=== PATIENT | male | born 1945 | race Caucasian/White ===

== ENCOUNTER → 2023-04-15 06:47 | Outpatient (REF) | payer OTHER, SELFPAY | LOC: RAD 06:47 | PROVIDERS: ATTENDING PHYSICIAN Internal Medicine Gastroenterology; FAMILY PHYSICIAN Student in an Organized Health Care Education/Training Program | DX: K74.69 Other cirrhosis of liver (principal) | CPT/HCPCS: 76700 ==

== ENCOUNTER 2023-06-28 06:18 | Day surgery (SDC) | payer OTHER, SELFPAY ==
[2023-06-28 08:20] LABS: Glucose - Point of Care 106 mg/dl (70-99)
[2023-06-28 08:24] VITALS: BP 167/80
[2023-06-28 08:25] VITALS: BMI 33.8
[2023-06-28 08:29] VITALS: BMI 33.8
[2023-06-28 09:47] VITALS: BP 135/74
[2023-06-28 10:00] VITALS: BP 122/62
[2023-06-28 10:11] LABS: Glucose - Point of Care 108 mg/dl (70-99)
[2023-06-28 10:15] VITALS: BP 149/76
== END 2023-06-28 10:27 | disposition home or self-care (01) ==
LOC: SDS 06:18
PROVIDERS: ATTENDING PHYSICIAN Internal Medicine Gastroenterology
DX: K74.60 Unspecified cirrhosis of liver (principal); I85.10 Secondary esophageal varices without bleeding; K29.70 Gastritis, unspecified, without bleeding; K22.89 Other specified disease of esophagus; K44.9 Diaphragmatic hernia without obstruction or gangrene; K31.7 Polyp of stomach and duodenum
CPT/HCPCS: 43239; 88305; 82962; 88342; 93005

== ENCOUNTER → 2023-10-21 10:25 | Outpatient (REF) | payer OTHER, SELFPAY | LOC: RAD 10:25 | PROVIDERS: ATTENDING PHYSICIAN Nurse Practitioner Family; FAMILY PHYSICIAN Emergency Medicine | DX: M79.605 Pain in left leg (principal) | CPT/HCPCS: 93971 ==

== ENCOUNTER → 2023-10-23 07:15 | Outpatient (REF) | payer OTHER, SELFPAY | LOC: MRI 3T 07:15 | PROVIDERS: ATTENDING PHYSICIAN Internal Medicine Transplant Hepatology; FAMILY PHYSICIAN Emergency Medicine | DX: K74.69 Other cirrhosis of liver (principal) | CPT/HCPCS: 74183; A9581 ==

== ENCOUNTER → 2023-11-07 07:14 | Outpatient (REF) | payer OTHER, SELFPAY | LOC: HWRAD 07:14 | PROVIDERS: ATTENDING PHYSICIAN Internal Medicine Transplant Hepatology; FAMILY PHYSICIAN Emergency Medicine | DX: C22.0 Liver cell carcinoma (principal) | CPT/HCPCS: 71250 ==

== ENCOUNTER 2024-01-01 06:05 | Day surgery (SDC) | payer OTHER, SELFPAY ==
[2023-12-06 13:47] VITALS: BMI 33.0
[2023-12-06 14:46] LABS: Hematocrit 32.7 % (39.0-52.0); Hemoglobin 11.6 g/dL (13.0-18.0); Mean Corp Hgb Conc. 35.5 g/dL (33.0-37.0); Mean Corpuscular Hgb 33.1 pg (27.0-31.0); Mean Corpuscular Volume 93.4 fL (80.0-94.0); Mean Platelet Volume 11.6 fL (7.4-10.4); Platelet Count 66 10^3/uL (130-400); Red Cell Dist. Width 14.2 % (11.5-14.5); White Blood Cell Count 2.9 10^3/uL (4.8-10.8)
[2023-12-06 15:10] LABS: ALT (SGPT) 45 U/L (0-50); AST (SGOT) 50 U/L (17-59); Albumin 3.2 g/dl (3.5-5.0); Alkaline Phosphatase 147 U/L (38-126); Blood Urea Nitrogen 10 mg/dl (9-20); Calcium 8.6 mg/dl (8.4-10.2); Carbon Dioxide 22 mmol/L (22-30); Chloride 110 mmol/L (98-107); Estimated Creatinine Clearance > 125 ml/min; Glucose 110 mg/dl (70-99); Sodium 142 mmol/L (135-145); Total Bilirubin 1.6 mg/dl (0.2-1.3); Total Protein 5.9 g/dl (6.3-8.2); eGFR > 60.00
[2023-12-07 13:41] LABS: Glycohemoglobin (HgbA1c) 5.3 % (4.0-5.6)
--- NOTE | 2023-12-23 11:36 | VNURNOTE ---
Patient is scheduled for an elective L TKA on 01/01/24- he is a same day patient with Dr Blue. Spoke with patient's spouse Jennifer prior to surgery. Introduced role of [facility] Liaison. She reports that pt lives with spouse in a MULTI story home. There
are 2 steps to enter and a flight of steps to the second floor. 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 patient currently functions independently. He has a cane and rolling walker.
PCP is Dr Dotty Jaramillo.
Discussed [facility] joint protocol and post surgical plans.
Reviewed that he will have VN services initially and will then start outpatient PT.
Selects VN for his home care needs and will go to [facility] for outpatient PT. Scheduled for 01/05
Patient's spouse advised to bring RW day of surgery. All questions answered. Referral placed in [facility].
Plan: [facility] per [facility] joint protocol then outpt PT on 01/05
--- NOTE | 2023-12-25 09:37 | SUR.OPER ---
Patients 12/05 WBC- 2.9; platelets 66. Lisy @ Dr. Victoria office notified
[2023-12-26 09:47] VITALS: BMI 33.0
--- NOTE | 2023-12-26 14:42 | PTCARENOTE ---
Dr Gardner made aware of PLT 66. He ordered a repeat CBC morning of surgery.
[2023-12-30 12:15] VITALS: BMI 33.0
[2024-01-01] VITALS (13 sets, daily range): BP systolic 109–161; BP diastolic 54–78; BMI 33.0
[2024-01-01 06:09] LABS: Glucose - Point of Care 104 mg/dl (70-99)
[2024-01-01 06:30] LABS: Hematocrit 32.8 % (39.0-52.0); Mean Corp Hgb Conc. 36.6 g/dL (33.0-37.0); Mean Corpuscular Hgb 32.9 pg (27.0-31.0); Mean Corpuscular Volume 89.9 fL (80.0-94.0); Mean Platelet Volume 10.1 fL (7.4-10.4); Platelet Count 76 10^3/uL (130-400); Red Blood Cell Count 3.65 10^6/uL (4.70-6.10); Red Cell Dist. Width 13.8 % (11.5-14.5); White Blood Cell Count 3.2 10^3/uL (4.8-10.8)
[2024-01-01] MEDS: CELEBREX 200 MG PO (06:38)
[2024-01-01] MEDS: TYLENOL 650 MG PO (06:39)
[2024-01-01 08:42] LABS: Glucose - Point of Care 110 mg/dl (70-99)
--- NOTE | 2024-01-01 10:59 | PTCARENOTE ---
Patient bleeding a lot under dressing and entire dressing full. Shyanne Andre notified and also Dr. Blue. Dr. Blue here to change patients entire dressing. No much swelling noted around knee. Patient does have baljinder and baljinder were added
by Dr. Blue to the knee. Additional dose of Transemic Acid added also. Will wait on PT for now until patient not bleeding.
[2024-01-01] MEDS: ANCEF 5 IV (11:02)
--- NOTE | 2024-01-01 11:11 | PTCARENOTE ---
Positive pulse in L dorsalis pedis. Will monitor patient.
[2024-01-01] MEDS: TRANEXAMIC ACID 100 IV (11:15)
--- NOTE | 2024-01-01 11:24 | PTCARENOTE ---
Called pharmacy twice for Transemic Acid dose. Started infusion at 1115. Will monitor patient.
--- NOTE | 2024-01-01 11:39 | PTCARENOTE ---
Patient voided 350 ml of clear yellow urine.
--- NOTE | 2024-01-01 11:58 | PTCARENOTE ---
Patient OOB and voided. Patient also OOB and dressed and stood. Patient does not have any bleeding noted at the present time. Dressing dry and intact. Dressing is a pressure dressing applied by Dr. Blue with ABD's and issac wrap. Positive pulse to
the L foot. +2 nonpitting edema to the inner aspect of the ankle. Will monitor patient.
== END 2024-01-01 12:34 | disposition home health service (06) ==
LOC: SDS 06:05
PROVIDERS: Anesthesiology; ATTENDING PHYSICIAN Orthopaedic Surgery; FAMILY PHYSICIAN Nurse Practitioner Family; OTHER PHYSICIAN Internal Medicine Interventional Cardiology
PROC: 0SRD0J9 Replacement of Left Knee Joint with Synthetic Substitute, Cemented, Open Approach (ICD-10-PCS; 2024-01-01)
DX: M17.12 Unilateral primary osteoarthritis, left knee (principal)
CPT/HCPCS: 27447; 36415; 73560; 80053; 82962; 83036; 85027; 86850; 86900; 86901; 87070; 93005; 97162; C1713; C1776

== ENCOUNTER 2024-01-31 08:53 | Outpatient (RCR) | payer OTHER, SELFPAY | END 2024-01-31 23:59 | disposition home or self-care (01) | LOC: RPT 08:53 | PROVIDERS: ATTENDING PHYSICIAN Orthopaedic Surgery | DX: Z47.1 Aftercare following joint replacement surgery (principal); Z96.652 Presence of left artificial knee joint; Z73.6 Limitation of activities due to disability | CPT/HCPCS: 97010; 97110; 97116; 97162; 97530 ==

== ENCOUNTER 2024-02-03 08:52 | Outpatient (RCR) | payer OTHER, SELFPAY | END 2024-02-03 09:53 | disposition home or self-care (01) | LOC: RPT 08:52 | PROVIDERS: ATTENDING PHYSICIAN Orthopaedic Surgery | DX: Z47.1 Aftercare following joint replacement surgery (principal); M25.562 Pain in left knee; Z73.6 Limitation of activities due to disability; Z96.652 Presence of left artificial knee joint | CPT/HCPCS: 97110 ==

== ENCOUNTER → 2024-02-28 07:30 | Outpatient (REF) | payer OTHER, SELFPAY | LOC: HWRAD 07:30 | PROVIDERS: ATTENDING PHYSICIAN Internal Medicine Transplant Hepatology; FAMILY PHYSICIAN Emergency Medicine | DX: R91.1 Solitary pulmonary nodule (principal) | CPT/HCPCS: 71250 ==

== ENCOUNTER → 2024-03-10 19:18 | Outpatient (REF) | payer OTHER, SELFPAY | LOC: MRI 3T 19:18 | PROVIDERS: ATTENDING PHYSICIAN Physician Assistant; FAMILY PHYSICIAN Emergency Medicine | DX: C22.0 Liver cell carcinoma (principal) | CPT/HCPCS: 74183; A9581 ==

== ENCOUNTER → 2024-06-10 07:50 | Outpatient (REF) | payer OTHER, SELFPAY | LOC: PET 07:50 | PROVIDERS: ATTENDING PHYSICIAN Internal Medicine Critical Care Medicine | DX: C22.0 Liver cell carcinoma (principal); R91.8 Other nonspecific abnormal finding of lung field | CPT/HCPCS: 78815; A9552 ==

== ENCOUNTER → 2024-06-18 09:44 | Outpatient (REF) | payer OTHER, SELFPAY ==
[2024-06-18 10:17] VITALS: BP 140/76; BP_SYST 82
[2024-06-18 10:27] VITALS: BP 94/59; BP_SYST 80
== END ==
LOC: RADI 09:44
PROVIDERS: ATTENDING PHYSICIAN Internal Medicine Critical Care Medicine
DX: J90 Pleural effusion, not elsewhere classified (principal)
CPT/HCPCS: 32555; 71045

== ENCOUNTER → 2024-06-22 09:50 | Outpatient (REF) | payer OTHER, SELFPAY | LOC: PAVMRI 09:50 | PROVIDERS: ATTENDING PHYSICIAN Physician Assistant; FAMILY PHYSICIAN Emergency Medicine | DX: C22.0 Liver cell carcinoma (principal) | CPT/HCPCS: 74183; A9581 ==

== ENCOUNTER 2024-07-06 13:55 | Inpatient (IN) | payer OTHER, SELFPAY ==
[2024-07-06] VITALS (14 sets, daily range): BP systolic 79–160; BP diastolic 69–104; BMI 31.8; BMI 30.9
[2024-07-06 09:52] LABS: % Basophils 0.6 % (0-2); % Eosinophils 2.9 % (0-6); % Immature Granulocytes 0.2 % (0-0.5); % Lymphocytes 9.4 % (20.5-51.1); % Monocytes 10.9 % (1.7-9.3); Absolute Eosinophils 0.1 10^3/uL (0-0.7); Absolute Lymphocytes 0.5 10^3/uL (1.2-3.4); Absolute Monocytes 0.5 10^3/uL (0.1-0.6); Absolute Neutrophils 3.7 10^3/uL (1.4-6.5); Hematocrit 36.7 % (39.0-52.0); Hemoglobin 12.9 g/dL (13.0-18.0); Mean Corp Hgb Conc. 35.1 g/dL (33.0-37.0); Mean Corpuscular Hgb 34.2 pg (27.0-31.0); Mean Corpuscular Volume 97.3 fL (80.0-94.0); Mean Platelet Volume 10.8 fL (7.4-10.4); Nucleated Red Blood Cells % 0 % (-); Platelet Count 111 10^3/uL (130-400); Red Blood Cell Count 3.77 10^6/uL (4.70-6.10); Red Cell Dist. Width 14.6 % (11.5-14.5); White Blood Cell Count 4.9 10^3/uL (4.8-10.8)
[2024-07-06 10:06] LABS: ALT (SGPT) 47 U/L (0-50); AST (SGOT) 52 U/L (17-59); Albumin 2.5 g/dl (3.5-5.0); Alkaline Phosphatase 205 U/L (38-126); Blood Urea Nitrogen 11 mg/dl (9-20); Calcium 8.6 mg/dl (8.4-10.2); Carbon Dioxide 26 mmol/L (22-30); Chloride 109 mmol/L (98-107); Glucose 146 mg/dl (70-99); Potassium 4.1 mmol/L (3.5-5.1); Sodium 141 mmol/L (135-145); Total Bilirubin 2.9 mg/dl (0.2-1.3); Total Protein 5.3 g/dl (6.3-8.2); eGFR > 60.00
[2024-07-06 10:16] LABS: Troponin I < 0.012 ng/ml
--- NOTE | 2024-07-06 11:03 | ED.GENMED ---
History of Present Illness
General
Chief Complaint: Chest Pain
Source: patient
Exam Limitations: none
Time Seen by Provider: 07/06/24 11:00
History of Present Illness
History of Present Illness:
79yoM with a history of hepatocellular carcinoma s/p transarterial radiation treatment, cirrhosis, hypertension, hyperlipidemia, and type 2 diabetes presenting for evaluation of shortness of breath. Patient has a history of a pleural effusion and
had a thoracentesis performed on 06/18/24. He has been feeling short of breath over the past primarily with exertion. He is also having a cough at nighttime. He reports intermittent twinges in his chest. He has no chest pain currently. He was
seen by his PCP today and breath sounds were decreased on the right so he was sent to the ED for evaluation. He denies any fevers or leg swelling.
Past History
Past History
ED Past Medical History: GERD, HTN, Hypercholesterolemia and Hypothyroidism
ED Past Surgical History: None
Social History
Tobacco: Non-smoker
Alcohol: None
Drug: None
Phy Exam
General Physical Exam
General Presentation: well appearing and no apparent distress
General age: appears stated age
General Skin: warm and dry
General Habitus: normal
General Mental: alert
ENT Exam
ENT Exam: normocephalic
Cardiovascular Exam
Cardiovascular Exam: no edema and irregularly irregular
Pulmonary Exam
Pulmonary Exam: no respiratory distress and other (Decreased breath sounds on R lung base. Speaking in full sentences without difficulty)
Neurological Exam
Neurological Exam: alert
[place] Coma Scale
Eye Opening: Spontaneous
Verbal Response: Oriented
Motor Response: Obeys Commands
GCS Total Score: 15
Skin Exam
Skin Exam: normal color and warm/dry
Psychiatric Exam
Psychiatric Exam: normal mood/affect
Scores
Heart Score for Chest Pain Patients
STEMI patient?: Not applicable
Course
Orders/Labs/Results
Orders:
Orders
07/06/24 Breakfast
2000 calorie (17 carb) Diabetic
At Your Request: Full Participation
Does patient need a safe tray?: No
07/06/24 09:21
Electrocardiogram (*1) Urgent
Reason for Study: Chest Pain
07/06/24 09:22
EKG- Treatment ONCE
07/06/24 09:33
CXR2 [CR Chest - 2 Views ] Urgent
Comment:
Reason For Exam: sob
07/06/24 09:41
Complete Blood Count/With Diff Urgent
Comprehensive Metabolic Panel Urgent
Magnesium Urgent
Comment: TSH & MAG ADDED ON BY FLOOR 11:30AM 07-06-24
NT-proBNP Urgent
Comment: BNP ADDED ON BY FLOOR 12:30PM 07-06-24
TSH Urgent
Troponin I Urgent
07/06/24 11:23
Cardiac Monitoring- Treatment ONCE
07/06/24 11:24
Add On- LAB Urgent
Tests Added?: TSH, magnesium
07/06/24 11:27
PULMONARY CONSULT Routine
Consulting Provider: Cody Roche
Was physician already notified: Yes
07/06/24 11:39
IRAD Cytology Routine
Date Specimen was Collected: 07/06/24
Time Specimen was Collected: 14:00
Source: Pleural Fluid, Right
Clinical Impression: pleural effusion
07/06/24 11:41
IRAD CONSULT Routine
Consulting Provider: Santiago Nicole
Was physician already notified: Yes
Procedure being ordered, including laterality if applicable: R thoracentesis
Acknowledgement that appropriate orders are entered: Yes
07/06/24 12:22
Admit/Transfer Patient As Directed
Co-Sign Provider:
Level of Care: Inpatient admission
Assign to:: Telemetry
Physician / Group: aislinn rebolledo
Diagnosis: pleural effusion
Reason for Telemetry: Arrhythmia
Date to Stop Telemetry: 07/09/24
Time to Stop Telemetry: 11:00
Reason for Hospitalization: pleural effusion
Expected length of stay greater than two midnights?: Yes
ELOS- Estimated Length of Stay in days: 3
I certify the patient meets the requirements for IP care: Yes
PRN Pain Medication Management As Directed
May give lesser potent ordered pain med per pt: Yes
preference::
Protocol:: Medication orders for pain may be administered in a
manner that supports deferring to patient preference
when the pt is:
- Requesting an ordered lesser potent pain medication.
Least to most potent pain medications are defined
as: acetaminophen < NSAID < tramadol < opioids
(morphine, oxycodone, hydromorphone).
- Requesting a lesser dose of the same medication IF
ORDERED.
- Requesting a less intrusive route of administration
if both routes are prescribed by the provider (PO <
IV).
07/06/24 12:24
Add On- LAB Urgent
Tests Added?: bnp
Code Status As Directed
Resuscitation Status: Full Code
07/06/24 12:39
Acetaminophen [Tylenol] 650 mg PO Q4HPRN PRN
Bisacodyl [Dulcolax] 10 mg RECTAL [id number] PRN
Dextrose 50%-Water [Dextrose 50% Syringe] 12.5 grams IV [id number] PRN
Docusate W/Senna [Senokot-S] 1 tablet PO BIDPRN PRN
Glucagon [GlucaGen] 1 mg IM PRN PRN
Polyethylene Glycol Powder [Miralax] 17 grams PO DAILYPRN PRN
07/06/24 12:39
CARDIOLOGY CONSULT Routine
Consulting Provider: Mohamud King
Was physician already notified: Yes
Activity As Directed
Activity Level: As Tolerated
Bedside Glucose Monitoring As Directed
Frequency: AC&HS
Additional Instructions:: Change to q6h if pt on TPN, tube feeding or not eating
Vital Signs As Directed
Frequency: Per unit guidelines
DX Deep Vein Thrombosis Video Routine
07/06/24 12:45
Electrocardiogram (*1) Urgent
Reason for Study: Shortness of Breath
07/06/24 12:58
Hematocrit Routine
PTT Urgent
Prothrombin Time Urgent
07/06/24 12:59
Echo 2D MMode Color/Doppler Routine
Reason for Study: sob
07/06/24 14:05
Acid Fast Culture & Smear Routine
TAYLER Source: Pleural Fluid
Specimen Description:
Date Specimen was Collected: 07/06/24
Time Specimen was Collected: 13:58
Comment: post procedure
Body Fluid Cell Count Routine
What is the Body Fluid: pleural fluid
Date Specimen was Collected: 07/06/24
Time Specimen was Collected: 13:59
Fluid Culture with Gram Stain Routine
TAYLER Source: Pleural Fluid
Specimen Description:
Date Specimen was Collected: 07/06/24
Time Specimen was Collected: 13:59
Comment: right
Fungus Culture Routine
TAYLER Source: Pleural Fluid
Specimen Description:
Date Specimen was Collected: 07/06/24
Time Specimen was Collected: 13:58
Fungus Smear Routine
TAYLER Source: Pleural Fluid
Specimen Description:
Date Specimen was Collected: 07/06/24
Time Specimen was Collected: 13:58
07/06/24 14:06
Body Fluid Amylase Routine
Fluid Source: Pleural
Date Specimen was Collected: 07/06/24
Time Specimen was Collected: 13:59
Comment: right
Body Fluid LDH Routine
Fluid Source: Pleural
Date Specimen was Collected: 07/06/24
Time Specimen was Collected: 13:59
Body Fluid Protein Routine
Fluid Source: Pleural
Date Specimen was Collected: 07/06/24
Time Specimen was Collected: 13:59
Body Fluid Triglycerides Routine
Fluid Source: Pleural
Date Specimen was Collected: 07/06/24
Time Specimen was Collected: 13:59
07/06/24 14:27
Glucose Urgent
LDH Urgent
Total Protein Urgent
Troponin I Urgent
07/06/24 16:30
Insulin Aspart Corrective Low [Novolog Flexpen-Low Resistance] See Protocol SC AC
07/06/24 18:00
Aspirin Chewable [Low Strength Aspirin] 81 mg PO QPM
Enoxaparin Sodium [Lovenox] 40 mg SC QPM
Pantoprazole [Protonix] 40 mg PO QPM
psyllium 1 packet PO QPM
07/06/24 19:00
Troponin I Q6H
07/06/24 20:00
Carvedilol [Coreg] 3.125 mg PO BID
07/06/24 22:00
Ferrous Sulfate [Feosol] 325 mg PO HS
07/07/24 01:00
Troponin I Q6H
07/07/24 06:00
Basic Metabolic Panel IN AM
Cardiovascular Evaluation IN AM
Complete Blood Count/No Diff IN AM
Glycohemoglobin (HgbA1c) IN AM
TSH Reflex To Free T4 IN AM
07/07/24 07:00
Troponin I Q6H
07/07/24 08:00
Atorvastatin [Lipitor] 20 mg PO DAILY
Multivitamin [Theragran] 1 tablet PO DAILY
Valsartan [Diovan] 80 mg PO DAILY
ascewrhgfol-zrhgektfq-lmy C-Mn 1 cap PO DAILY
07/08/24 06:00
Basic Metabolic Panel IN AM
Complete Blood Count/No Diff IN AM
07/09/24 06:00
Basic Metabolic Panel IN AM
Complete Blood Count/No Diff IN AM
07/09/24 11:00
DC Protocol for Telemetry ONCE
Abnormal Lab Results
07/06/24 07/06/24
09:41 12:58
RBC 3.77 L 10^6/uL
(4.70-6.10)
Hgb 12.9 L g/dL
(13.0-18.0)
Hct 36.7 L % 35.5 L %
(39.0-52.0) (39.0-52.0)
MCV 97.3 H fL
(80.0-94.0)
MCH 34.2 H pg
(27.0-31.0)
RDW 14.6 H %
(11.5-14.5)
Plt Count 111 L 10^3/uL
(130-400)
MPV 10.8 H fL
(7.4-10.4)
Absolute Lymphs (auto) 0.5 L 10^3/uL
(1.2-3.4)
Neutrophils % 76.0 H %
(42.2-75.2)
Lymphocytes % 9.4 L %
(20.5-51.1)
Monocytes % 10.9 H %
(1.7-9.3)
PT 16.5 H Sec
(11.4-14.6)
Chloride 109 H mmol/L
(98-107)
Creatinine 0.6 L mg/dL
(0.7-1.3)
Glucose 146 H mg/dl
(70-99)
Total Bilirubin 2.9 H mg/dl
(0.2-1.3)
Alkaline Phosphatase 205 H U/L
(38-126)
Total Protein 5.3 L g/dl
(6.3-8.2)
Albumin 2.5 L g/dl
(3.5-5.0)
07/06/24 12:58
07/06/24 12:58
Vital Signs
Initial and Last Documented VS:
Initial Vital Signs
Temp Pulse BP Pulse Ox
97.9 F 78 140/69 98
07/06/24 09:27 07/06/24 09:27 07/06/24 09:27 07/06/24 09:27
Last Documented Vital Signs
Temp Pulse Resp BP Pulse Ox
97.4 F 92 17 156/79 97
07/06/24 15:20 07/06/24 15:20 07/06/24 15:20 07/06/24 15:20 07/06/24 17:08
MDM/Problems Addressed
Differential Diagnosis Includes:
79yoM here with exertional dyspnea x 1 week. Hx of hepatocellular carcinoma. S/p thoracentesis about 2 weeks ago. Sent in by PCP for concern for recurrent effusion. VSS. He is well appearing in no respiratory distress. Breath sounds decreased at R
lung base. Differential diagnosis includes but is not limited to: Pleural effusion, pneumonia, CHF, less likely PE as he is not tachycardic or hypoxic
Workup obtained in triage. Chest x-ray shows a moderate size right pleural effusion. There is a patchy opacity in the right mid to lower lung which may be atelectasis and/or pneumonia. He denies any infectious symptoms
and white count normal. EKG shows rate controlled atrial fibrillation which would be a new diagnosis for him. Unclear if anticoagulation would be safe as he has a history of thrombocytopenia and esophageal varices. IR consulted for thoracentesis
as well as pulmonology. Patient admitted for further management.
*EKG
Interpreted by ED Provider?: Yes
EKG Intrepretation Date: 07/06/24
Heart Rate: 83
Rate: normal
Rhythm: a-fib
[place]: left axis deviation
QRS Pattern: right bundle branch block
Ischemia: no ischemia
*Critical Care Note
Total Time (30-74mins, 75-104mins- exclusive of procedures): Not Applicable
ED Attending Note
-
Portions of this chart may have been created with voice recognition software.� Occasional wrong word or��sound alike� substitutions may have occurred due to the inherent limitations of voice recognition software.
Discharge Plan
Departure
Patient Disposition: Admit
Date of Disposition: 07/06/24
Time of Disposition: 11:44
Presentation/result/management discussed w/ accepting MD/DO: Hospitalist
Discharge Problem:
Recurrent right pleural effusion, New onset atrial fibrillation
Interventions
Interventions:
*Risk Screen - Suicide Last Done: 07/06/24 15:28
*General Assessment Last Done: 07/06/24 11:21
*Neglect/Abuse Screening Last Done: 07/06/24 11:21
*ED- Fall Risk Assessment Last Done: 07/06/24 11:21
*ED COVID-19 Vaccine History Last Done: 07/06/24 15:28
*Nursing Disposition Last Done: 07/06/24 14:33
ED- Cardiac Assessment Last Done: 07/06/24 11:21
Discharge Date and Time
Discharge Date/Time: 07/06/24 14:33
--- NOTE | 2024-07-06 12:03 | HPS.HSE ---
Addendum entered and electronically signed by Camilo Pemberton MD 07/06/24 14:37:
I saw and examined the patient.
The DEMAND GENERATOR MANAGER or PA's note was reviewed and I agree with the note.
Comment: 79-year-old male with past medical history hepatocellular carcinoma status post transarterial radiation treatment, hypertension, cirrhosis, hyperlipidemia, type 2 diabetes mellitus came to the hospital with shortness of breath from few
days. Patient also noted mainly shortness of breath is with exertion. Also noticed some chest pressure with exertion. Denies any fever/chills. He does report to have history of pleural effusion and had thoracentesis last month. Chest x-ray with
moderate pleural effusion. Consult IR for thoracentesis. Follow Thora labs. Consult pulmonary and cardiology. New onset A-fib in the ED. Check TSH. Trend troponin. Check echo
General: Well Developed, Well Nourished and No Apparent Distress
HEENT: NormoCephalic, Moist mucous membranes and Atraumatic
Respiratory: Decreased Breath Sounds
Cardiac: S1/S2 and Regular Rhythm; No Murmur or Rub
GI: Soft, Non Tender, Non Distended and Normal Bowel Sounds
Musculoskeletal: No Edema
Neuro: AO x 3 and Nonfocal/grossly intact
Psych: Calm
I spent a total of 77 minutes with the patient or on the floor. More than 50% of this time involved counseling and coordination of care.
Original Note:
Family Physician
-
Family Physician: Cindi Marquez MD
Chief Complaint
-
sob
History of Present Illness
79yoM with a history of hepatocellular carcinoma s/p transarterial radiation treatment, cirrhosis, hypertension, hyperlipidemia, and type 2 diabetes presenting for evaluation of shortness of breath for past four days. patient stated sob only with
exertion. stated some chest pressure with exertion. denied cough, congestion, fever, chill, B[place], dizzy or syncope.denied abdominal pain,n,v,d. denied dysuria or hematuria. denied weight gain or LE edema. Patient has a history of a pleural effusion
and had a thoracentesis performed on 06/18/24.
Chest x-ray with moderate pleural effusion. ER consulted interventional radiology for thoracentesis. Admitting for further management
Medical History
Past Medical History
Past Medical History: Reports Other
Additional Past Medical History:
Iron deficiency anemia, thrombocytopenia, hypertension, type 2 diabetes, cirrhosis of liver without ascites, hypothyroidism, insomnia, pulmonary hypertension, aortic valve sclerosis, nonalcoholic fatty liver disease, CKD, lung nodules, peptic ulcer
disease, hepatocellular carcinoma
Past Surgical History: Reports Other
Additional Past Surgical History:
Right eye cataract surgery, basal cell carcinoma removal, right total hip replacement, excision of scalp cyst, left total knee replacement, liver tumor removed, thoracentesis,
Social History
Tobacco: Former Smoker
Alcohol: None
Drug: None
Family History
Family History: Not pertinent
Allergies / Home Medications
Allergies reflects when Allergies were last updated in [employer].
Home Medications with original date entered in [employer]
Allergy/Medication List:
Allergies
Allergy/AdvReac Type Severity Reaction Status Date / Time
No Known Allergies Allergy Verified 01/01/24 06:16
Home Medications
metformin 500 mg tablet 500 mg PO BID Diabetes 05/22/21
atorvastatin 20 mg tablet 20 mg PO DAILY High cholesterol 05/26/21
carvedilol 3.125 mg tablet 3.125 mg PO BID Blood pressure 05/26/21
multivitamin with folic acid 400 mcg tablet (Tab-A-Emerita) 1 tab PO DAILY Supplement 05/26/21
ferrous sulfate 325 mg (65 mg iron) tablet (FeroSul) 325 mg PO HS Supplement 12/26/23
pantoprazole 40 mg tablet,delayed release 40 mg PO QPM Gastrointestinal issue 12/26/23
fjqkxizoykz-kaejbojlg-djs C-Mn 500 mg-400 mg capsule 1 cap PO DAILY 06/18/24
aspirin 81 mg chewable tablet 81 mg PO QPM Blood clot prevention/tx 07/06/24
psyllium 1 packet PO QPM 07/06/24
valsartan 80 mg tablet 80 mg PO DAILY Blood pressure 07/06/24
vitamins A and D3 in cod liver oil 1,250 unit-135 unit capsule (cod liver oil) 1 cap PO DAILY 07/06/24
Review of Systems
-
Constitutional: Reports No Symptoms
EENT: Reports No Symptoms
Respiratory: Reports Trouble Breathing
Cardiac: Reports No Symptoms
Abdomen/GI: Reports No Symptoms
: Reports No Symptoms
Musculoskeletal: Reports No Symptoms
Skin: Reports No Symptoms
Neurological: Reports No Symptoms
Endocrine: Reports No Symptoms
Hematologic/Lymphatic: Reports No Symptoms
Psych: Reports No Symptoms
Physical Exam
Vital Signs
Vital Signs
Temp Pulse BP Pulse Ox
97.9 F 78 140/76 98
07/06/24 09:27 07/06/24 09:27 07/06/24 11:07 07/06/24 11:09
Physical Exam
General: Well Developed, Well Nourished and No Apparent Distress
HEENT: NormoCephalic, Moist mucous membranes and Atraumatic
Respiratory: Decreased Breath Sounds
Cardiac: S1/S2 and Regular Rhythm; No Murmur or Rub
GI: Soft, Non Tender, Non Distended and Normal Bowel Sounds; No Organomegaly
Rectal: Deferred by Provider
Musculoskeletal: No Clubbing, No Cyanosis and No Edema
Skin: No Rash
Neuro: AO x 3 and Nonfocal/grossly intact
Psych: Calm
Laboratory Results
-
07/06/24 09:41
07/06/24 09:41
Laboratory Results
Total Bilirubin 2.9 mg/dl (0.2-1.3) H 07/06/24 09:41
AST 52 U/L (17-59) 07/06/24 09:41
ALT 47 U/L (0-50) 07/06/24 09:41
Alkaline Phosphatase 205 U/L (38-126) H 07/06/24 09:41
Troponin I < 0.012 ng/ml 07/06/24 09:41
Data Reviewed
-
Diagnostic Radiology: Report Reviewed by me
Lab Data: Labs Reviewed by me
Impression/Plan
-
# Shortness of breath secondary to right pleural effusion
- Chest x-ray with right pleural effusion. Patchy parenchymal opacity within the right mid to lower lung with main differential consideration of atelectasis and/or pneumonia
- History of thoracentesis on 06/18 yielding 650cc
- Pulmonary/IR consulted for thoracentesis
- Patient oxygenating very well on room air
# New onset A-fib with controlled heart rate
- EKG with A-fib
- Cardiology consulted
# History of hepatocellular carcinoma diagnosed in December 2023
# Cirrhosis
- Patient is following up with Dr. Catalan at [place]
- His last radiation was in May
#hxt of hematochezia sec to duodenal/angiectasia/gastric ulcer/variceal bleeding
# Essential hypertension/hyperlipidemia
- Aspirin, statin, Coreg continue with hold parameters
# Anemia of chronic disease
- Hemoglobin stable at 12.9
- No active bleeding
- Continue to monitor
- Ferrous sulfate continue
#Diabetes type II
-Hold Metformin
- Sliding scale,
- Carb controlled diet
# GERD
- PPI continued
Full code
ED prophylaxis SCDs
[2024-07-06 12:05] LABS: Magnesium 1.6 mg/dl (1.6-2.3)
--- NOTE | 2024-07-06 12:25 | CM ---
CM met with pt bedside
He is [place] and without his hearing aides
Pt resides with his spouse in a 2SH with 1STE, 13 steps to 2nd floor
Pt is indep with his ADLs no ADs, drives+
Has a WW for use if needed from prior knee replacement
Pt has completed radiation in 04/2024
PCP- Cindi Marquez
Rx- [facility]
Discharge Disposition- anticipate home no needs
[2024-07-06 12:35] LABS: TSH 2.89 uIU/ml (0.47-4.68)
[2024-07-06 13:14] LABS: NT-proBNP 410 pg/ml
[2024-07-06 13:24] LABS: Hematocrit 35.5 % (39.0-52.0)
[2024-07-06 13:39] LABS: PT 16.5 Sec (11.4-14.6)
[2024-07-06 13:40] LABS: APTT 31.7 Sec (23.4-35.0)
[2024-07-06 14:51] LABS: Glucose 105 mg/dl (70-99); LDH 349 U/L (120-246); Total Protein 5.4 g/dl (6.3-8.2)
[2024-07-06 15:01] LABS: Body Fluid pH 7.48
[2024-07-06 15:04] LABS: Troponin I < 0.012 ng/ml
[2024-07-06 15:13] LABS: Body Fluid Polymorphonuclear 26.7 %; Body Fluid WBC 161 /CUMM
[2024-07-06 15:14] LABS: Body Fluid Mononuclear 73.3 %
[2024-07-06 15:20] LABS: Body Fluid Amylase 49 U/L; Body Fluid Glucose 118 mg/dl; Body Fluid LDH 85 U/L; Body Fluid Protein < 2.0 g/dl; Body Fluid Triglycerides < 30 mg/dl
[2024-07-06 15:33] LABS: Body Fluid Second Tech DW
[2024-07-06 16:00] LABS: Glucose - Point of Care 113 mg/dl (70-99)
--- NOTE | 2024-07-06 16:10 | CON.CAR ---
Addendum entered and electronically signed by Jack Abad MD 07/06/24 18:05:
Attending addendum: Patient seen and examined. PA note reviewed and findings independently confirmed by me. Briefly, this is a 79-year-old gentleman with a past medical history notable for cirrhosis. He was diagnosed with hepatocellular carcinoma
in September 2023 and received transarterial radiation therapy at [facility]. He states that his most recent MRI looked 'clean'. Additional history includes 'diabetes' but his HgbA1c has measured 5.5%. He is also treated for CKD2,
hypertension, h/o variceal bleeding, and right sided pleural effusion s/p thoracentesis on 06/18/24. He now presents with a 4 day history of increase shortness of breath especially when walking up an incline. He presented for further evaluation and
was noted to have a larger effusion but was also noted to be in atrial fibrillation
GEN: AAO x 3. No acute distress
HEENT: NC/AT, sclera are anicteric
LUNGS: Clear No wheezing (post thoracentesis)
CV: Irreg Irreg rate adn rhythm. Normal S1/S2.
EXT: No CCE
NEURO: No focal neurologic deficits
RECOMMENDATION:
- Atrial fibrillation: rate controlled
Echocardiogram has been ordered
Continue oral beta jerry
Begin oral anticoagulation with Eliquis 5mg po bid : Will look into cost associated with Eliquis
He will need THELMA and cardioversion. Not sure this needs to be done while he is an inpatient
[id number] score is 3-4 depending on diagnosis of diabetes. He would need OAC either way
- Pleural effusion
Await cytology and studies
Original Note:
Consultation
Consultation Request
Date/Time Consultation Requested: 07/06/24
Date/Time Consultation Performed: 07/06/24
Requesting Provider: Dr. Pemberton
Performing Provider: Dr. Abad
Reason for Consultation: Newly diagnosed Afib of unclear duration
Medical History
-
History of Present Illness:
Patient came to the ER yesterday with increased SOB and was admitted with right-sided pleural effusion and newly diagnosed Afib of unclear duration. Patient says that he noticed increased HORTON especially with inclines and also increased cough at
night when laying down for bed. Patient finally came to the ER after he saw his PCP yesterday and they thought he might have recurrent pleural effusion. In the ER patient was noted to have reaccumulation of right-sided pleural effusion following
right-sided thoracentesis 06/18/24, but also he was in new Afib. Patient denies palpitations. No chest pain. He has not noticed LE edema or bloating.
PMH:
Right-sided pleural effusion
s/p thoracentesis for 650 mL yellow pleural fluid 06/18/24
HTN
CKD 2
DM 2
Nonalcoholic hepatic cirrhosis
h/o hepatocellular carcinoma treated with radioactive isotope at [facility] 12/2023
h/o variceal bleeding
Past Medical History
Past Medical History: Other (in HPI)
Past Surgical History: Orthopedic
Social History
Tobacco: Former Smoker
Alcohol: None
Drug: None
Personal:
Living: With Family
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
Family History
Family History: CAD
Allergies / Home Medications
Allergy/AdvReac Type Severity Reaction Status Date / Time
No Known Allergies Allergy Verified 01/01/24 06:16
�Medication �Instructions �Recorded �Confirmed �Type
metformin 500 mg tablet 500 mg PO BID Diabetes 05/22/21 07/06/24 History
atorvastatin 20 mg tablet 20 mg PO DAILY High cholesterol 05/26/21 07/06/24 History
carvedilol 3.125 mg tablet 3.125 mg PO BID Blood pressure 05/26/21 07/06/24 History
multivitamin with folic acid 400 1 tab PO DAILY Supplement 05/26/21 07/06/24 History
mcg tablet (Tab-A-Emerita)
ferrous sulfate 325 mg (65 mg 325 mg PO HS Supplement 12/26/23 07/06/24 History
iron) tablet (FeroSul)
pantoprazole 40 mg tablet,delayed 40 mg PO QPM Gastrointestinal issue 12/26/23 07/06/24 History
release
wkjfndctcdl-yoabfuoeo-zou C-Mn 500 1 cap PO DAILY 06/18/24 07/06/24 History
mg-400 mg capsule
aspirin 81 mg chewable tablet 81 mg PO QPM Blood clot 07/06/24 07/06/24 History
prevention/tx
psyllium 1 packet PO QPM 07/06/24 07/06/24 History
valsartan 80 mg tablet 80 mg PO DAILY Blood pressure 07/06/24 07/06/24 History
vitamins A and D3 in cod liver oil 1 cap PO DAILY 07/06/24 07/06/24 History
1,250 unit-135 unit capsule (cod
liver oil)
Review of Systems
-
History Source: Patient
All other systems: Negative unless noted
Physical Exam
Vital Signs
Temp Pulse Resp BP Pulse Ox
97.4 F 92 17 156/79 97
07/06/24 15:20 07/06/24 15:20 07/06/24 15:20 07/06/24 15:20 07/06/24 15:20
GEN: NAD. AAOx3
HEENT: EOMI, MMM
LUNGS: RA. CTA B/L, no wheeze
CV: Afib on tele. Irreg irreg, S1/S2, no murmur
ABD: ND
EXT: No edema B/L LE
NEURO: Gross non-focal
SKIN: No rash
Lab Results
07/06/24 12:58
07/06/24 14:27
Troponin I < 0.012 ng/ml 07/06/24 14:27
Xcc-T-Jestbajbxfq Pept 410 pg/ml 07/06/24 09:41
Impression / Plan
-
PCP: Dr. Mckinney
Card: Dr. Abda
Impression:
Admitted with shortness of breath, right-sided pleural effusion and new Afib 07/05/24
Right-sided pleural effusion
s/p thoracentesis for 650 mL yellow pleural fluid 06/18/24
s/p thoracentesis for 2.15 L yellow pleural fluid 07/06/24
Newly diagnosed Afib of unclear duration
HTN
CKD 2
DM 2
Nonalcoholic hepatic cirrhosis
h/o hepatocellular carcinoma treated with radioactive isotope at [facility] 12/2023
h/o variceal bleeding, grade I esophageal varices by upper endoscopy 06/28/23
Echo 03/21/21: EF 60-65%, mild LVH, mild TR
Echo 07/06/24: Study pending
Plan:
-Patient came to the ER yesterday with increased SOB and was admitted with right-sided pleural effusion and newly diagnosed Afib of unclear duration. Patient says that he noticed increased HORTON especially with inclines and also increased cough at
night when laying down for bed. Patient finally came to the ER after he saw his PCP yesterday and they thought he might have recurrent pleural effusion. In the ER patient was noted to have reaccumulation of right-sided pleural effusion following
right-sided thoracentesis 06/18/24, but also he was in new Afib. Patient denies palpitations. No chest pain. He has not noticed LE edema or bloating.
-ECG reviewed by me is Afib with controlled ventricular response.
-Check echo, study pending
-pro-BNP was only 410 and no other signs to indicate CHF aside from right-sided pleural effusion.
-Pleural effusion is recurrent and in the setting of known hepatocellular carcinoma and cirrhosis.
-Afib is a new diagnosis and HRs are overall controlled with usual outpatient dose of Coreg 3.125 mg BID..
-Started Eliquis 5 mg BID (age 79, Cre 0.6) tonight. Will ask CM to check on cost
-Talked with patient about an attempt at CV for rhythm control. Patient would be interested in outpatient THELMA/CV next week. Pending TTE and Eliquis velazco check will arrange for outpatient THELMA/CV.
-Patient with h/o cirrhosis and variceal bleeding. His last upper endoscopy was on 06/28/2023 and at that time he had grade 1 esophageal varices.
--- NOTE | 2024-07-06 17:14 | CON.PUL ---
Consultation
Consultation Request
Date/Time Consultation Requested: 07/06/2024
Date/Time Consultation Performed: 07/06/2024
Requesting Provider: Dr. Pemberton
Performing Provider: Dr. Cody Terrell
Reason for Consultation: Right pleural effusion
Medical History
-
History of Present Illness:
79-year-old man with past medical history significant for hepatocellular carcinoma status post transarterial radiation treatment, hypertension, cirrhosis, hyperlipidemia, type 2 diabetes who came to the hospital complaining of shortness of breath
for a few days. Shortness of breath mainly with exertion. Denies any cough, fevers, chills, night sweats or phlegm production.
Patient does report history of pleural effusion in the past with thoracentesis performed last month.
In the emergency room he was found to have new atrial fibrillation.
We were consulted for evaluation of pleural effusion.
Patient feels better after thoracentesis.
Past Medical History
Past Medical History: Other (See assessment and plan)
Social History
Tobacco: Former Smoker
Alcohol: None
Drug: None
Family History
Family History: Reviewed & Not Pertinent
Allergies / Home Medications
Allergies
Allergy/AdvReac Type Severity Reaction Status Date / Time
No Known Allergies Allergy Verified 01/01/24 06:16
Home Medications
�Medication �Instructions �Recorded �Confirmed �Last Taken �Type
metformin 500 mg tablet 500 mg PO BID Diabetes 05/22/21 07/06/24 07/06/24 History
atorvastatin 20 mg tablet 20 mg PO DAILY High cholesterol 05/26/21 07/06/24 07/06/24 History
carvedilol 3.125 mg tablet 3.125 mg PO BID Blood pressure 05/26/21 07/06/24 07/06/24 History
multivitamin with folic acid 400 1 tab PO DAILY Supplement 05/26/21 07/06/24 07/06/24 History
mcg tablet (Tab-A-Emerita)
ferrous sulfate 325 mg (65 mg 325 mg PO HS Supplement 12/26/23 07/06/24 07/05/24 History
iron) tablet (FeroSul)
pantoprazole 40 mg tablet,delayed 40 mg PO QPM Gastrointestinal issue 12/26/23 07/06/24 07/05/24 History
release
joqhzuviahj-gbekiejsm-iwv C-Mn 500 1 cap PO DAILY 06/18/24 07/06/24 07/06/24 History
mg-400 mg capsule
aspirin 81 mg chewable tablet 81 mg PO QPM Blood clot 07/06/24 07/06/24 07/05/24 History
prevention/tx
psyllium 1 packet PO QPM 07/06/24 07/06/24 07/05/24 History
valsartan 80 mg tablet 80 mg PO DAILY Blood pressure 07/06/24 07/06/24 07/06/24 History
vitamins A and D3 in cod liver oil 1 cap PO DAILY 07/06/24 07/06/24 07/06/24 History
1,250 unit-135 unit capsule (cod
liver oil)
Review of Systems
-
History Source: Patient
All other systems: Negative unless noted
Vitals / Labs / Diagnostic Testing
Vital Signs
Temp Pulse Resp BP Pulse Ox
97.4 F 92 17 156/79 97
07/06/24 15:20 07/06/24 15:20 07/06/24 15:20 07/06/24 15:20 07/06/24 15:20
Lab Data
07/06/24 12:58
07/06/24 14:27
Laboratory Results
07/06/24
12:58
PT 16.5 H
INR 1.30
APTT 31.7
Microbiology
07/06/24 14:05 Pleural Fluid Fungal Culture - Preliminary
Culture in progress.
Positive cultures are reported as soon as detected.
Final report to follow in four to five weeks.
Diagnostic Testing:
Physical Exam
-
HEENT: Normocephalic
Cardiovascular: S1/S2
Respiratory: Clear and Non-Labored Respirations
GI: Soft and Non Distended
Neurology: Awake, Alert, Oriented, AO x 3 and No Motor Deficits
General: Comfortable
Assessment
-
79-year-old man with history of cirrhosis, hepatocellular carcinoma status post TARE at [facility] last time 05/2024. Comes to the hospital complaining of shortness of breath, admitted for right-sided pleural effusion. New diagnosis of
atrial fibrillation. We were consulted for evaluation of pleural effusion.
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
Thoracentesis 07/06/2024: pH 7.48/white blood cells 161/73% mononuclears/26% polymorphs/glucose 118/total protein less than 2/LDH 85/fluid amylase 49/triglycerides less than 30
New onset atrial fibrillation
proBNP 410-no evidence for heart failure on exam.
-
Conditions present prior admission:
Chronic right pleural effusion s/p thoracentesis 06/18/2024 650 cc.
Former tobacco abuse
Hypertension
Mild TR by echocardiogram
Nonalcoholic Cirrhosis of the liver without ascites-follows up with Dr. Catalan
Grade I EV
Hepatocellular carcinoma status post intrahepatic s/p TARE [place] 01/2024 and 05/2024
Obesity
Obstructive lung disease
Lung nodules-decreasing in size on PET scan 06/11/2019 25-1.7 X1 0.3 cm. Left lower lobe.-Being followed by Dr. Boyd
Mild pulmonary hypertension on echocardiogram from 2021
Assessment and plan:
Right pleural effusion-transudate on thoracentesis 07/06/2024- He also had a thoracentesis in June 2024.
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
Follow cytology
No evidence for infection
He is clinically improved-not requiring oxygen supplementation. Shortness of breath/resolved.
-
Continue to optimize underlying cirrhosis per hepatology/gastroenterology- Consider starting Lasix/Aldactone./Low-sodium diet- Currently not using any diuretics.
Would avoid chest tubes or indwelling pleural catheters at this point.
-
New onset atrial fibrillation, cardiology following.
Echocardiogram this admission showed LVEF 60 to 65%. Mild LVH. Mild MR. Mild TR. Estimated pulmonary artery pressure 35 to 40 mmHg. Normal right ventricular size and function.
-
Pulmonary hypertension will need to be followed: Patient is at risk for hepatopulmonary hypertension.
Is being followed by hematology.
He is being followed by Dr. Boyd locally.
-
Left upper lobe lung nodule-decreasing in size on latest PET scan. Being followed with a repeat CAT scan in the future.
-
Will follow
[2024-07-06] MEDS: LOW STRENGTH ASPIRIN 81 MG PO (17:33)
[2024-07-06] MEDS: METAMUCIL, KONSYL 1 PACKET PO (17:34)
[2024-07-06] MEDS: PROTONIX 40 MG PO (17:34)
--- NOTE | 2024-07-06 18:00 | PTCARENOTE ---
Pt received from ED. Walked to bed from ED stretcher. VSS. AAOx3 and very pleasant. Admission done with Jennifer @bedside. Pt sent to Echo. Medications gone over with pt by this RN. Pt aware that first dose of Eliquis will start tonight. Pulm
@bedside to update pt. Pt sitting at edge of bed, no complaints @ this time. Will continue to monitor.
[2024-07-06] MEDS: COREG 3.125 MG PO (20:53)
[2024-07-06] MEDS: ELIQUIS 5 MG PO (20:53)
[2024-07-06] MEDS: FEOSOL 325 MG PO (20:53)
[2024-07-06 21:43] LABS: Glucose - Point of Care 163 mg/dl (70-99)
[2024-07-07 02:32] LABS: Troponin I < 0.012 ng/ml
[2024-07-07 03:40] VITALS: BP 116/72
[2024-07-07 07:20] LABS: Hematocrit 36.4 % (39.0-52.0); Hemoglobin 12.9 g/dL (13.0-18.0); Mean Corp Hgb Conc. 35.4 g/dL (33.0-37.0); Mean Platelet Volume 10.5 fL (7.4-10.4); Platelet Count 104 10^3/uL (130-400); Red Blood Cell Count 3.79 10^6/uL (4.70-6.10); Red Cell Dist. Width 14.6 % (11.5-14.5); White Blood Cell Count 4.7 10^3/uL (4.8-10.8)
[2024-07-07 07:29] VITALS: BP 119/72
[2024-07-07 07:30] LABS: Blood Urea Nitrogen 9 mg/dl (9-20); Calcium 8.3 mg/dl (8.4-10.2); Carbon Dioxide 29 mmol/L (22-30); Chloride 108 mmol/L (98-107); Estimated Creatinine Clearance > 125 ml/min; Glucose 98 mg/dl (70-99); HDL Cholesterol 24 mg/dl; LDL Cholesterol, Calculated 52 mg/dl; Potassium 4.1 mmol/L (3.5-5.1); Sodium 141 mmol/L (135-145); Total Cholesterol 89 mg/dl (50-199); Triglyceride 66 mg/dl (10-149); Very Low Density Lipoprotein 13 mg/dl (0-30); eGFR > 60.00
[2024-07-07 07:41] LABS: Glucose - Point of Care 97 mg/dl (70-99)
[2024-07-07 07:48] LABS: Troponin I < 0.012 ng/ml
[2024-07-07 07:59] LABS: TSH Reflex To Free T4 3.01 uIU/ml (0.47-4.68)
[2024-07-07] MEDS: THERAGRAN 1 TABLET PO (09:21)
[2024-07-07] MEDS: ELIQUIS 5 MG PO (09:21)
[2024-07-07] MEDS: DIOVAN 80 MG PO (09:22)
[2024-07-07] MEDS: COREG 3.125 MG PO (09:22)
[2024-07-07] MEDS: LIPITOR 20 MG PO (09:22)
[2024-07-07 09:49] LABS: Glycohemoglobin (HgbA1c) 5.4 % (4.0-5.6)
--- NOTE | 2024-07-07 10:49 | W.PN.CARDCBS ---
Today's Communication / Plan
-
THELMA/CV on 07/16/24
New to Eliquis, gave 30 day free sample card
Impression / Plan
-
PCP: Dr. Mckinney
Card: Dr. Abad
Impression:
Admitted with shortness of breath, right-sided pleural effusion and new Afib 07/05/24
Right-sided pleural effusion
s/p thoracentesis for 650 mL yellow pleural fluid 06/18/24
s/p thoracentesis for 2.15 L yellow pleural fluid 07/06/24
Newly diagnosed Afib of unclear duration
HTN
CKD 2
DM 2
Nonalcoholic hepatic cirrhosis
h/o hepatocellular carcinoma treated with radioactive isotope at [facility] 12/2023
h/o variceal bleeding, grade I esophageal varices by upper endoscopy 06/28/23
Echo 03/21/21: EF 60-65%, mild LVH, mild TR
Echo 07/06/24: EF 60 to 65%, no WMA, mild MR, mild TR
Plan:
-Tele reviewed by me 07/07/24, remains in Afib. Afib is a new diagnosis this admission. HRs controlled with usual outpatient dose of Coreg 3.125 mg BID.
-New to Eliquis 5 mg BID (age 79, Cre 0.6) tonight. Appreciate hospitalist attending asking CM to check on cost. Patient can at least use the 1 month free coupon.
-TT to cardiac procedure schedulers to arrange for a THELMA/CV next week.
-Patient had right-sided thoracentesis for 650 mL yellow pleural fluid 06/18/24 and again for 2.15 L yellow pleural fluid 07/06/24
-Pleural effusion is recurrent and in the setting of known hepatocellular carcinoma and cirrhosis. Pathology pending. Patient with h/o hepatocellular carcinoma, but says he is in remission according to most recent scans through his primary oncology
team at [facility]
-Patient with h/o cirrhosis and variceal bleeding. His last upper endoscopy was on 06/28/2023 and at that time he had grade 1 esophageal varices.
-Stable for d/c to home and to follow up with THELMA/CV next week
HPI: Patient came to the ER yesterday with increased SOB and was admitted with right-sided pleural effusion and newly diagnosed Afib of unclear duration. Patient says that he noticed increased HORTON especially with inclines and also increased cough at
night when laying down for bed. Patient finally came to the ER after he saw his PCP yesterday and they thought he might have recurrent pleural effusion. In the ER patient was noted to have reaccumulation of right-sided pleural effusion following
right-sided thoracentesis 06/18/24, but also he was in new Afib. Patient denies palpitations. No chest pain. He has not noticed LE edema or bloating.
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
Subjective
Date of Service: July 07, 2024
He feels well, he wants to go home
Objective
Labs:
07/07/24 06:49
07/07/24 06:49
Labs
Hgb 12.9 g/dL (13.0-18.0) L 07/07/24 06:49
Hct 36.4 % (39.0-52.0) L 07/07/24 06:49
Plt Count 104 10^3/uL (130-400) L 07/07/24 06:49
PT 16.5 Sec (11.4-14.6) H 07/06/24 12:58
INR 1.30 07/06/24 12:58
APTT 31.7 Sec (23.4-35.0) 07/06/24 12:58
Sodium 141 mmol/L (135-145) 07/07/24 06:49
Potassium 4.1 mmol/L (3.5-5.1) 07/07/24 06:49
BUN 9 mg/dl (9-20) 07/07/24 06:49
Creatinine 0.6 mg/dL (0.7-1.3) L 07/07/24 06:49
Glucose 98 mg/dl (70-99) 07/07/24 06:49
Troponins
07/06/24 07/06/24 07/06/24
09:41 12:58 14:27
Troponin I < 0.012 Cancelled < 0.012
07/06/24 07/07/24 07/07/24
19:00 01:52 06:49
Troponin I Cancelled < 0.012 < 0.012
Vital Signs and I&O:
Vital Signs
Temp Pulse Resp BP Pulse Ox
98.1 F 93 18 119/72 95
07/07/24 07:29 07/07/24 09:22 07/07/24 07:29 07/07/24 09:22 07/07/24 07:29
Vital Signs
Temp Pulse Resp BP Pulse Ox
98.1 F 93 18 119/72 95
07/07/24 07:29 07/07/24 09:22 07/07/24 07:29 07/07/24 09:22 07/07/24 07:29
Intake & Output
07/05/24 07/06/24 07/07/24 07/08/24
06:59 06:59 06:59 06:59
Intake Total 840 / 840
Balance 840 / 840
Physical Exam
Physical Exam
GEN: NAD. AAOx3
HEENT: EOMI, MMM
LUNGS: RA. No wheeze
CV: Afib on tele.
ABD: ND
EXT: No edema B/L LE
NEURO: Gross non-focal
SKIN: No rash
[2024-07-07 11:07] VITALS: BP 139/73
[2024-07-07 11:35] LABS: Glucose - Point of Care 178 mg/dl (70-99)
--- NOTE | 2024-07-07 11:54 | W.PN.HOSP.TC ---
Today's Communication/Plan
-
Monitor vital signs and see plan
Discharge today with outpatient follow-up with cardiology for cardioversion
Continue Eliquis
Patient will follow-up with hepatology outpatient
Time of discharge 38 minutes
Assessment / Plan
Assessment / Plan
General: Well Developed, Well Nourished and No Apparent Distress
HEENT: NormoCephalic, Moist mucous membranes and Atraumatic
Respiratory: Decreased Breath Sounds
Cardiac: S1/S2 and Regular Rhythm; No Murmur or Rub
GI: Soft, Non Tender, Non Distended and Normal Bowel Sounds
Musculoskeletal: No Edema
Neuro: AO x 3 and Nonfocal/grossly intact
Psych: Calm
Shortness of breath secondary to right pleural effusion
- Chest x-ray with right pleural effusion. Patchy parenchymal opacity within the right mid to lower lung with main differential consideration of atelectasis and/or pneumonia. There is no signs of pneumonia. Symptoms likely secondary to pleural
effusion. Status post thoracentesis. Appears transudative. Cytology pending. Patient will follow-up with hepatology outpatient. Likely will need diuresis outpatient
Discussed with pulmonary and cardiology and patient is okay to be discharged home with outpatient follow-up. Regarding atrial fibrillation cardiology will follow-up outpatient for cardioversion. Currently rate controlled. Started on Eliquis
- Patient oxygenating very well on room air
# New onset A-fib with controlled heart rate
- EKG with A-fib
- Cardiology consulted
Regarding atrial fibrillation cardiology will follow-up outpatient for cardioversion. Currently rate controlled. Started on Eliquis
# History of hepatocellular carcinoma diagnosed in December 2023
# Cirrhosis
- Patient is following up with Dr. Catalan at [place]
- His last radiation was in May
#hxt of hematochezia sec to duodenal/angiectasia/gastric ulcer/variceal bleeding
# Essential hypertension/hyperlipidemia
- Aspirin, statin, Coreg continue with hold parameters
# Anemia of chronic disease
- monitor hgb
- No active bleeding
- Continue to monitor
- Ferrous sulfate continue
#Diabetes type II
-Hold Metformin
- Sliding scale,
- Carb controlled diet
# GERD
- PPI continued
Full code
DVT prophylaxis SCDs,eliquis
Anticipated Discharge: Today
Subjective/Interval History
-
Date of Service: July 07, 2024
denies pain
Objective Data
-
Labs:
Laboratory Results
07/07/24
06:49
WBC 4.7 L
Hgb 12.9 L
Hct 36.4 L
Plt Count 104 L
Sodium 141
Potassium 4.1
Chloride 108 H
Carbon Dioxide 29
BUN 9
Creatinine 0.6 L
Glucose 98
Calcium 8.3 L
Vital Signs:
Vital Signs
Temp Pulse Resp BP Pulse Ox
97.7 F 101 18 139/73 98
07/07/24 11:07 07/07/24 11:07 07/07/24 11:07 07/07/24 11:07 07/07/24 11:07
I&O
07/06/24 07/07/24 07/08/24
06:59 06:59 06:59
Intake Total 840 / 840
Balance 840 / 840
--- NOTE | 2024-07-07 12:03 | W.DCSUMMARY ---
Discharge Summary
Discharge Data
Date of Admission: 07/06/24
Date of Discharge: 07/07/24
-
Pending Results: Yes
Hospital Course
79-year-old male with past medical history of hepatocellular carcinoma, hematochezia secondary to duodenal/angiectasia/gastric ulcer/variceal bleeding, essential hypertension, hyperlipidemia, anemia of chronic disease, diabetes mellitus, GERD came
to the hospital with shortness of breath secondary to right-sided pleural effusion. On this hospitalization patient required thoracentesis done by interventional radiology. Studies from thoracentesis appears transudative. Cytology was still
pending prior to discharge for which patient instructed to follow-up with hepatology outpatient. Patient was seen by pulmonary throughout hospitalization and was instructed to follow-up with them outpatient as well. On this admission patient
developed new onset atrial fibrillation however his heart rate was controlled. He remained in A-fib prior to discharge. Cardiology recommended patient to follow-up with them for cardioversion. He was also started on Eliquis on this
hospitalization. Once his breathing continue to improve after thoracentesis, he was then discharged home with instructions to follow-up with all his physicians outpatient.
Discharge Plan
-
Patient Disposition: Home (Routine Discharge)
Discharge Diagnosis/Procedures: Shortness of breath secondary to pleural effusion
New onset atrial fibrillation
History of hepatocellular carcinoma
Diet: As tolerated
Activity: As tolerated
Driving Restrictions: As prior to admission
Bathing Restrictions: None
Activity Restrictions/Additional Instructions:
Follow-up with cytology outpatient
Follow-up with hepatology outpatient
Referrals:
Cindi Marquez MD [Family Provider] - in less than 1 week
Jack Abad MD [Active] -
Denver Boyd MD [Active] -
Prescriptions:
New
Eliquis 5 mg Tablet
5 mg PO BID Qty: 60 11RF
Continued
metformin 500 MG tablet
500 mg PO BID
atorvastatin 20 MG tablet
20 mg PO DAILY
carvedilol 3.125 MG tablet
3.125 mg PO BID
multivitamin with folic acid [Tab-A-Emerita] 1 TABLET tablet
1 tab PO DAILY
pantoprazole 40 MG tablet,delayed release (DR/EC)
40 mg PO QPM
ferrous sulfate [FeroSul] 325 MG tablet
325 mg PO HS
cumqywqkwui-phoqbudmi-fwe C-Mn 500-400 mg Capsule
1 cap PO DAILY
psyllium Packet
1 packet PO QPM
vit A and D3 in cod liver oil [cod liver oil] 1,250-135 unit Capsule
1 cap PO DAILY
valsartan 80 MG tablet
80 mg PO DAILY
aspirin 81 MG tablet,chewable
81 mg PO QPM
Discharge Orders:
Discharge Patient (As Directed); Ordered 07/07/24
Ordered By: Camilo Pemberton
Discharge Date and Time
Discharge Date/Time: 07/07/24 12:40
Print Language: MONGOLIAN
--- NOTE | 2024-07-07 12:09 | CM ---
CM met with pt bedside
Pt resides with his spouse in a 2SH with 1STE, 13 steps to 2nd floor
Pt is indep with his ADLs no ADs, drives+
Has a WW for use if needed from prior knee replacement
Pt has new Rx for Eliquis. 30 day copay card provided. Next fill will cost $145.48.
PCP- Cindi Marquez
Rx- [facility]
Discharge Disposition- anticipate home no needs
== END 2024-07-07 12:40 | disposition home or self-care (01) | DRG 187 ==
LOC: 3 WEST ACU 13:55
PROVIDERS: Physician Assistant; Radiology Vascular & Interventional Radiology; Registered Nurse; ADMITTING PHYSICIAN Internal Medicine; CONSULT PHYSICIAN Internal Medicine Critical Care Medicine; EMERGENCY PHYSICIAN Student in an Organized Health Care Education/Training Program; FAMILY PHYSICIAN Emergency Medicine; OTHER PHYSICIAN Internal Medicine Interventional Cardiology
PROC: 0W993ZZ Drainage of Right Pleural Cavity, Percutaneous Approach (ICD-10-PCS; 2024-07-06)
DX: J90 Pleural effusion, not elsewhere classified (principal); C22.0 Liver cell carcinoma; I48.92 Unspecified atrial flutter; I48.91 Unspecified atrial fibrillation; I12.9 Hypertensive chronic kidney disease with stage 1 through stage 4 chronic kidney disease, or unspecified chronic kidney disease; N18.2 Chronic kidney disease, stage 2 (mild); D63.8 Anemia in other chronic diseases classified elsewhere; K21.9 Gastro-esophageal reflux disease without esophagitis; E11.22 Type 2 diabetes mellitus with diabetic chronic kidney disease; I27.20 Pulmonary hypertension, unspecified; I70.0 Atherosclerosis of aorta; Z79.01 Long term (current) use of anticoagulants; Z79.82 Long term (current) use of aspirin; Z79.899 Other long term (current) drug therapy; Z87.891 Personal history of nicotine dependence
CPT/HCPCS: 88305; 32555; 71045; 71046; 80048; 80053; 80061; 82150; 82945; 82947; 82962; 83036; 83615; 83735; 83880; 83986; 84155; 84157; 84443; 84478; 84484; 85014; 85025; 85027; 85610; 85730; 87015; 87070; 87102; 87116; 87205; 87206; 88112; 89051; 93005; 93306; 99285

== ENCOUNTER → 2024-07-16 09:26 | Day surgery (SDC) | payer OTHER, SELFPAY ==
[2024-07-16 10:20] LABS: Glucose - Point of Care 108 mg/dl (70-99)
--- NOTE | 2024-07-16 10:53 | ITS.CL.CARDI ---
[employer] - Cardioversion
Cardioversion
Procedure Report:
Date of Procedure: 07/16/24
Procedure: Cardioversion
Indication: Symptomatic atrial fibrillation
Performing Physician: Wilbert Harris MD
Technique: The patient was brought to the holding area. Signed informed consent was obtained. A time out was called and performed. The patient was anesthetized by the anesthesia service. Anticoagulation status was reviewed and appropriate. R2 pads
were placed anteriorly and posteriorly. A 200 J synchronized biphasic shock restored normal sinus rhythm without significant bradycardia. There were no complications.
Conclusion: Uncomplicated cardioversion from atrial fibrillation to sinus rhythm.
Recommendation: Routine post cardioversion care. 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
[2024-07-16 10:56] VITALS: BMI 31.1
== END ==
LOC: CATH 09:26
PROVIDERS: ATTENDING PHYSICIAN Internal Medicine Cardiovascular Disease; FAMILY PHYSICIAN Emergency Medicine; OTHER PHYSICIAN Internal Medicine Interventional Cardiology
DX: I48.91 Unspecified atrial fibrillation (principal); Z79.01 Long term (current) use of anticoagulants; I08.3 Combined rheumatic disorders of mitral, aortic and tricuspid valves; I45.10 Unspecified right bundle-branch block; I49.1 Atrial premature depolarization; J90 Pleural effusion, not elsewhere classified; Z79.899 Other long term (current) drug therapy; I08.8 Other rheumatic multiple valve diseases; I70.0 Atherosclerosis of aorta
CPT/HCPCS: 93312; 93320; 93325; 82962; 92960; 93005

== ENCOUNTER → 2024-07-20 11:29 | Outpatient (REF) | payer OTHER, SELFPAY | LOC: RAD 11:29 | PROVIDERS: ATTENDING PHYSICIAN Emergency Medicine | DX: J90 Pleural effusion, not elsewhere classified (principal) | CPT/HCPCS: 71046 ==

== ENCOUNTER → 2024-10-08 07:30 | Outpatient (REF) | payer OTHER, SELFPAY | LOC: PAVMRI 07:30 | PROVIDERS: ATTENDING PHYSICIAN Physician Assistant; FAMILY PHYSICIAN Emergency Medicine; REFERRING PHYSICIAN Internal Medicine Critical Care Medicine | DX: C22.0 Liver cell carcinoma (principal); J90 Pleural effusion, not elsewhere classified | CPT/HCPCS: 71046; 74183; A9581 ==

== ENCOUNTER → 2024-10-22 12:05 | Outpatient (REF) | payer OTHER, SELFPAY | LOC: RAD 12:05 | PROVIDERS: ATTENDING PHYSICIAN Emergency Medicine; FAMILY PHYSICIAN Family Medicine | DX: J90 Pleural effusion, not elsewhere classified (principal) | CPT/HCPCS: 71046 ==

== ENCOUNTER → 2024-11-23 10:34 | Outpatient (REF) | payer OTHER, SELFPAY | LOC: REG 10:34 | PROVIDERS: ATTENDING PHYSICIAN Internal Medicine Critical Care Medicine | DX: J90 Pleural effusion, not elsewhere classified (principal) | CPT/HCPCS: 71046 ==

== ENCOUNTER → 2024-12-14 06:50 | Outpatient (REF) | payer OTHER, SELFPAY | LOC: RAD 06:50 | PROVIDERS: ATTENDING PHYSICIAN Internal Medicine Critical Care Medicine; FAMILY PHYSICIAN Family Medicine | DX: R91.8 Other nonspecific abnormal finding of lung field (principal) | CPT/HCPCS: 71250 ==

== ENCOUNTER → 2025-01-01 06:39 | Outpatient (REF) | payer OTHER, SELFPAY ==
[2025-01-01 07:35] LABS: PT 15.8 Sec (11.4-14.6)
[2025-01-01 07:36] LABS: APTT 36.0 Sec (23.4-35.0)
[2025-01-01 07:38] LABS: Blood Urea Nitrogen 12 mg/dl (9-20); Calcium 8.7 mg/dl (8.4-10.2); Carbon Dioxide 29 mmol/L (22-30); Chloride 110 mmol/L (98-107); Glucose 129 mg/dl (70-99); Potassium 4.1 mmol/L (3.5-5.1); Sodium 140 mmol/L (135-145); eGFR > 60.00
[2025-01-01 08:21] LABS: Hematocrit 32.7 % (39.0-52.0); Hemoglobin 11.2 g/dL (13.0-18.0); Mean Corp Hgb Conc. 34.3 g/dL (33.0-37.0); Mean Corpuscular Volume 100.9 fL (80.0-94.0); Red Cell Dist. Width 14.6 % (11.5-14.5)
[2025-01-01 08:44] LABS: Reticulocyte Count 2.7 % (0.4-2.8)
[2025-01-01 08:58] LABS: Nucleated Red Blood Cells % 0 % (-); Platelet Count 77 10^3/uL (130-400)
[2025-01-01 13:38] LABS: INR 1.23
== END ==
LOC: REG 06:39
PROVIDERS: ATTENDING PHYSICIAN Internal Medicine; FAMILY PHYSICIAN Family Medicine
DX: Z01.818 Encounter for other preprocedural examination (principal)
CPT/HCPCS: 36415; 80048; 85025; 85045; 85610; 85730

== ENCOUNTER 2025-01-04 06:29 | Day surgery (SDC) | payer OTHER, SELFPAY ==
[2024-12-25 09:34] LABS: INR 1.46; PT 18.0 Sec (11.4-14.6)
[2024-12-25 09:35] LABS: APTT 36.7 Sec (23.4-35.0)
[2024-12-25 09:46] LABS: Hematocrit 31.4 % (39.0-52.0); Hemoglobin 10.7 g/dL (13.0-18.0); Mean Corp Hgb Conc. 34.1 g/dL (33.0-37.0); Mean Corpuscular Volume 99.7 fL (80.0-94.0); Platelet Count 69 10^3/uL (130-400); Red Cell Dist. Width 14.8 % (11.5-14.5)
[2024-12-25 09:49] LABS: Blood Urea Nitrogen 12 mg/dl (9-20); Calcium 8.5 mg/dl (8.4-10.2); Carbon Dioxide 26 mmol/L (22-30); Chloride 112 mmol/L (98-107); Glucose 97 mg/dl (70-99); Potassium 4.1 mmol/L (3.5-5.1); Sodium 141 mmol/L (135-145); eGFR > 60.00
--- NOTE | 2024-12-25 11:50 | PTCARENOTE ---
Platelets 69, WBC's 2.9 & PT 1.46 were all collected on 12/25/24; Kiley at Dr. Tobin's office was notified.
[2024-12-25 14:03] VITALS: BMI 30.6
--- NOTE | 2024-12-31 14:04 | PTCARENOTE ---
Dr Tena made aware of plt 69, no further action requested.
--- NOTE | 2025-01-01 12:09 | PTCARENOTE ---
Repeat labwork done 01/01/25, abnormal values WBC 2.8, Plt 77, PT 15.8, PTT 36 reported to Kiley at Dr Tobin's office.
[2025-01-04] VITALS (8 sets, daily range): BP systolic 113–126; BP diastolic 50–64; BMI 30.6
[2025-01-04] MEDS: VENTOLIN NEBULES 2.5 MG INH (06:56)
[2025-01-04 07:12] LABS: Glucose - Point of Care 108 mg/dl (70-99)
[2025-01-04] MEDS: NSS 500 IV (07:18)
[2025-01-04 09:36] LABS: Glucose - Point of Care 116 mg/dl (70-99)
== END 2025-01-04 10:40 | disposition home or self-care (01) ==
LOC: SDS 06:29
PROVIDERS: ATTENDING PHYSICIAN Internal Medicine; FAMILY PHYSICIAN Family Medicine
DX: R91.1 Solitary pulmonary nodule (principal)
CPT/HCPCS: 31652; 71045; 76000; 80048; 82962; 85027; 85610; 85730; 87070; 87102; 87116; 87205; 88112; 88173; 88305; 94640; C1887

== ENCOUNTER → 2025-01-19 06:41 | Outpatient (REF) | payer OTHER, SELFPAY | LOC: RAD 06:41 | PROVIDERS: ATTENDING PHYSICIAN Internal Medicine Critical Care Medicine; FAMILY PHYSICIAN Family Medicine | DX: J90 Pleural effusion, not elsewhere classified (principal) | CPT/HCPCS: 71046 ==

== ENCOUNTER → 2025-01-20 07:25 | Outpatient (REF) | payer OTHER, SELFPAY | LOC: MRI 3T 07:25 | PROVIDERS: ATTENDING PHYSICIAN Nurse Practitioner Acute Care; FAMILY PHYSICIAN Emergency Medicine | DX: C22.0 Liver cell carcinoma (principal) | CPT/HCPCS: 74183; A9581 ==